=== PATIENT | male | born 1955 | race Caucasian/White ===

== ENCOUNTER → 2021-11-15 | Outpatient (REF) | LOC: M PLAIMG 09:26 | PROVIDERS: ATTEND Internal Medicine | DX: R06.02 Shortness of breath (principal) ==

== ENCOUNTER → 2022-02-06 | Outpatient (CLI) | payer MEDICARE | LOC: M PLARAD 11:18 | PROVIDERS: ATTEND Student in an Organized Health Care Education/Training Program | DX: C34.11 Malignant neoplasm of upper lobe, right bronchus or lung (principal); Z90.2 Acquired absence of lung [part of] | CPT/HCPCS: 78815; A9552 ==